=== PATIENT | female | born 1945 | race Caucasian/White ===

== ENCOUNTER 2016-09-14 09:21 | Inpatient (IN) | payer OTHER ==
[~2016-09-14] VITALS: Ht 157.5 cm; Wt 82.1 kg
[~2016-09-14 09:21] MED LIST: ACTOS30 MG PO; ADVAIR 250/501 DISK IH; ALFALFA650 MG PO; AMBIEN10 MG PO; ASPIRIN81 M1 PO; B-12 DOTS500 MCG PO; BONIVA150 MG PO; CALCIUM600 MG PO; CELEXA20 MG PO; COLACE100 MG PO; EFFIENT10 MG PO; FISH OIL 1,0001 EACH PO; HYDROCODON-ACE1 EAC7 PO; LANTUS100 UNIT/1 SQ; LASIX10 MG PO; LEVAQUIN750 MG PO; LIPITOR20 MG PO; MULTIVITAMIN1 EAC1 PO; NEXIUM40 MG PO; NORVASC10 MG PO; NOVOLIN N100 UNIT/1 SQ; PLAVIX75 MG PO
[2016-09-24] MEDS ORDERED: VALIUM5 MG PO (19:03)
[2016-09-24] MEDS ORDERED: NORCO 5/3251 TABLET PO (19:03)
[2016-12-09] MEDS ORDERED: LIPITOR40 MG PO (11:24)
[2016-12-09] MEDS ORDERED: PLAVIX75 MG PO (11:26)
[2016-12-09] MEDS ORDERED: ZOLOFT50 MG PO (11:27)
[2016-12-09] MEDS ORDERED: AVAPRO75 MG PO (11:28)
[2016-12-09] MEDS ORDERED: VITAMIN D31000 UNI2 PO (11:29)
[2016-12-09] MEDS ORDERED: VITAMIN B-6100 MG PO (11:30)
[2016-12-09] MEDS ORDERED: GLUCOPHAGE1000 MG PO (11:31)
[2016-12-09] MEDS ORDERED: MSM1000 MG PO (11:31)
[2016-12-09] MEDS ORDERED: FISH OIL 1,001000 M2 PO (11:32)
[2016-12-09] MEDS ORDERED: COZAAR50 MG PO (11:33)
[2016-12-09] MEDS ORDERED: LINZESS145 MCG PO (11:33)
[2016-12-09] MEDS ORDERED: IRON160 M1 PO (11:37)
[2016-12-14 10:16] LABS: POINT-OF-CARE METER ID UU14174212
[2016-12-14 10:34] VITALS: BP 123/59
[2016-12-14 11:23] LABS: POINT-OF-CARE METER ID UU14174212
[2016-12-14 13:55] LABS: POINT-OF-CARE METER ID UU14174212
[2016-12-14 15:14] VITALS: BP 145/65
== END 2016-12-14 20:14 | disposition home or self-care (01) | DRG 554 ==
LOC: 2SOUTH
PROVIDERS: Orthopaedic Surgery
DX: M16.11 Unilateral primary osteoarthritis, right hip (principal); I44.1 Atrioventricular block, second degree; Z53.09 Procedure and treatment not carried out because of other contraindication; J44.9 Chronic obstructive pulmonary disease, unspecified; I10 Essential (primary) hypertension; I25.10 Atherosclerotic heart disease of native coronary artery without angina pectoris; E78.2 Mixed hyperlipidemia; Z95.1 Presence of aortocoronary bypass graft; F17.210 Nicotine dependence, cigarettes, uncomplicated; G47.33 Obstructive sleep apnea (adult) (pediatric); E66.9 Obesity, unspecified; I08.3 Combined rheumatic disorders of mitral, aortic and tricuspid valves; Z68.32 Body mass index [BMI] 32.0-32.9, adult; E11.3299 Type 2 diabetes mellitus with mild nonproliferative diabetic retinopathy without macular edema, unspecified eye
CPT/HCPCS: 36415; 82948; 86850; 86900; 86901; 93005; J0330; J0690; J2250; J3010; J7050

== ENCOUNTER 2017-03-13 22:41 | Emergency (ER) | payer OTHER ==
[~2017-03-13] VITALS: Ht 157.5 cm; Wt 85.0 kg
[~2017-03-13 22:41] MED LIST changes: +AVAPRO75 MG PO; +COZAAR50 MG PO; +FISH OIL 1,001000 M2 PO; +GLUCOPHAGE1000 MG PO; +IRON160 M1 PO; +LINZESS145 MCG PO; +LIPITOR40 MG PO; +MSM1000 MG PO; +NORCO 5/3251 TABLET PO; +VALIUM5 MG PO; +VITAMIN B-6100 MG PO; +VITAMIN D31000 UNI2 PO; +ZOLOFT50 MG PO
[2017-03-13 23:38] LABS: HEMATOCRIT 37.8 % (36.0-46.0); MCH 30.2 PG (29.0-34.0); MCHC 33.9 G/DL (30.0-36.0); MCV 89.2 FL (83-99); MEAN PLAT.VOLUME 10.2 uM^3 (9.5-12.4); PLATELET COUNT 213 K/uL (156-360); RBC DIS.WIDTH-CV 13.5 % (11.8-14.6); RBC DIS.WIDTH-SD 44.1 % (39-53); RED BLOOD COUNT 4.24 M/uL (3.80-5.20); WHITE BLOOD COUNT 8.8 K/uL (4.1-10.2)
[2017-03-13 23:45] LABS: CHLORIDE 101 mEq/L (99-109); POTASSIUM 4.2 mEq/L (3.7-5.4); SODIUM 134 mEq/L (136-147)
[2017-03-13 23:48] LABS: GLUCOSE 250 mg/dL (70-99)
[2017-03-13 23:49] LABS: ANION GAP 11 MEQ/L (2-14)
[2017-03-13 23:50] LABS: TOTAL BILIRUBIN 0.3 mg/dL (0.0-1.0)
[2017-03-13 23:51] LABS: ALKALINE PHOSPHATASE 133 IU/L (3-129); GFR ESTIMATE (CALCULATED) 40 mL/min/
[2017-03-13 23:52] LABS: UREA NITROGEN (BUN) 34 mg/dL (9-23)
[2017-03-14 00:10] LABS: ADD MIUA? YES; BILIRUBIN NEGATIVE; BLOOD NEGATIVE; COLOR YELLOW ((YELLOW)); GLUCOSE (STRIP) NEGATIVE; KETONES NEGATIVE; LEUKOCYTES NEGATIVE; NITRITE NEGATIVE; PROTEIN (STRIP) 100; SPECIFIC GRAVITY 1.015 (1.000-1.030)
[2017-03-14 00:33] LABS: BACTERIA NONE SEEN /HPF; EPITHELIAL CELLS RARE /HPF; MUCUS TRACE /LPF; RED BLOOD CELLS 0-5 /HPF (0-5); UCUL ADDED? NO; WHITE BLOOD CELLS 0-5 /HPF (0-5)
[2017-03-14] MEDS ORDERED: KEFLEX500 MG PO (00:41)
[2017-03-14 00:59] VITALS: BP 135/53
== END 2017-03-14 00:59 | disposition home or self-care (01) ==
LOC: EME 22:41
PROC: 0T9B70Z Drainage of Bladder with Drainage Device, Via Natural or Artificial Opening (ICD-10-PCS; principal; 2017-03-13)
DX: R33.9 Retention of urine, unspecified (principal); N39.0 Urinary tract infection, site not specified; I11.0 Hypertensive heart disease with heart failure; I50.9 Heart failure, unspecified; E11.9 Type 2 diabetes mellitus without complications; J44.9 Chronic obstructive pulmonary disease, unspecified; J45.909 Unspecified asthma, uncomplicated; E78.5 Hyperlipidemia, unspecified; I25.10 Atherosclerotic heart disease of native coronary artery without angina pectoris; M81.0 Age-related osteoporosis without current pathological fracture; Z95.1 Presence of aortocoronary bypass graft; F17.200 Nicotine dependence, unspecified, uncomplicated
CPT/HCPCS: 80053; 81003; 83605; 85027; 99281; 99284

== ENCOUNTER 2018-01-10 22:09 | Inpatient (IN) | payer OTHER ==
[~2018-01-10] VITALS: Ht 157.5 cm; Wt 93.0 kg
[~2018-01-10 22:09] MED LIST changes: +CALCIUM500 M4 PO; -CALCIUM600 MG PO; +KEFLEX500 MG PO; +LANTUS 3 M100 UNITS1 SC; -LASIX10 MG PO; +LASIX20 MG PO; +NOVOLOG PE100 UNITS/ SC; +SYNTHROID50 MCG PO; +TOPICAINE 5113 GM TP; +TUMS500 MG PO
[2018-01-11 06:22] VITALS: BP 182/79
[2018-01-11 13:45] VITALS: BP 158/71
[2018-01-11 15:43] VITALS: BP 184/79
[2018-01-11 17:09] VITALS: BP 157/66
[2018-01-11 19:38] VITALS: BP 177/72
[2018-01-12 00:15] VITALS: BP 169/62
[2018-01-12 04:16] VITALS: BP 182/68
[2018-01-12 05:56] LABS: HEMATOCRIT 28.9 % (36.0-46.0)
[2018-01-12 06:15] LABS: CHLORIDE 102 MEQ/L (99-109); CREATININE 0.8 MG/DL (0.6-1.3); GFR ESTIMATE (CALCULATED) > 59 mL/min/; GLUCOSE 170 mg/dL (70-99); POTASSIUM 4.4 MEQ/L (3.7-5.4); SODIUM 133 MEQ/L (136-147); UREA NITROGEN (BUN) 16 mg/dL (9-23)
[2018-01-12 06:44] LABS: HEMOGLOBIN 9.8 G/DL (11.9-15.5); MCV 92.3 FL (83-99)
[2018-01-12 08:00] VITALS: BP 159/71
[2018-01-12 12:20] VITALS: BP 151/68
[2018-01-12 16:30] VITALS: BP 169/68
[2018-01-12 20:00] VITALS: BP 169/67
[2018-01-13] VITALS (7 sets, daily range): BP systolic 140–189; BP diastolic 64–77
[2018-01-13 06:27] LABS: HEMOGLOBIN 8.8 G/DL (11.9-15.5); MCV 91.9 FL (83-99)
[2018-01-13 13:08] LABS: BASOPHIL (%) 0.2 % (0-1); EOSINOPHIL (%) 0.1 % (0-5); HEMATOCRIT 27.5 % (36.0-46.0); HEMOGLOBIN 9.5 G/DL (11.9-15.5); IMMATURE GRANULOCYTE (%) 0.6 % (0.0-0.7); LYMPHOCYTE (%) 18.1 % (15-42); LYMPHOCYTE COUNT 1.8 K/uL (1.0-2.8); MCH 31.4 PG (29.0-34.0); MCHC 34.5 G/DL (30.0-36.0); MCV 90.8 FL (83-99); MONOCYTE (%) 9.1 % (3-12); MONOCYTE COUNT 0.9 K/uL (0-0.8); NEUTROPHIL (%) 71.9 % (45-76); NEUTROPHIL COUNT 7.3 K/uL (1.8-6.4); RBC DIS.WIDTH-CV 12.7 % (11.8-14.6); RBC DIS.WIDTH-SD 42.3 % (39-53); WHITE BLOOD COUNT 10.2 K/uL (4.1-10.2)
[2018-01-13 13:12] LABS: PLATELET COUNT 178 K/uL (156-360); RED BLOOD COUNT 3.03 M/uL (3.80-5.20)
[2018-01-13 13:28] LABS: TROP-I INTERPRETATION NEGATIVE; TROPONIN-I 0.03 ng/mL (0.0-0.30)
[2018-01-13 13:34] LABS: ALBUMIN 3.2 G/DL (3.2-4.8); CHLORIDE 101 MEQ/L (99-109); POTASSIUM 3.6 MEQ/L (3.7-5.4); SODIUM 133 MEQ/L (136-147); TOTAL BILIRUBIN 0.6 MG/DL (0.0-1.0)
[2018-01-13 13:40] LABS: ALKALINE PHOSPHATASE 78 IU/L (3-129); ALT (GPT) 10 IU/L (3-49); AST (GOT) 27 IU/L (2-34); CREATININE 0.7 MG/DL (0.6-1.3); GFR ESTIMATE (CALCULATED) > 59 mL/min/; LIPASE 16 U/L (1.0-51.0); TOTAL PROTEIN 5.9 G/DL (6.4-8.3); UREA NITROGEN (BUN) 16 mg/dL (9-23)
[2018-01-13 13:41] LABS: GLUCOSE 258 mg/dL (70-99)
[2018-01-13 14:53] LABS: MAGNESIUM 1.4 mg/dl (1.3-2.7)
[2018-01-13 16:28] LABS: APPEARANCE CLEAR ((CLEAR)); BILIRUBIN NEGATIVE; BLOOD SMALL; COLOR YELLOW ((YELLOW)); GLUCOSE (STRIP) NEGATIVE; KETONES NEGATIVE; LEUKOCYTES NEGATIVE; NITRITE NEGATIVE; PROTEIN (STRIP) 100; SPECIFIC GRAVITY 1.005 (1.000-1.030); UROBILINOGEN 0.2 MG/DL (0.2-1.0)
[2018-01-13 16:33] LABS: BACTERIA NONE SEEN /HPF; EPITHELIAL CELLS RARE /HPF; MUCUS TRACE /LPF; RED BLOOD CELLS 0-5 /HPF (0-5); UCUL ADDED? NO; WHITE BLOOD CELLS 0-5 /HPF (0-5)
[2018-01-13 20:42] LABS: TROP-I INTERPRETATION NEGATIVE; TROPONIN-I 0.03 ng/mL (0.0-0.30)
[2018-01-14 01:19] LABS: TROP-I INTERPRETATION NEGATIVE; TROPONIN-I 0.03 ng/mL (0.0-0.30)
[2018-01-14 04:36] VITALS: BP 157/70
[2018-01-14 08:26] VITALS: BP 163/70
[2018-01-14] MEDS ORDERED: HYDROCODON-ACE1 EAC7 PO (08:39)
[2018-01-14] MEDS ORDERED: LOVENOX40 MG/0.4 SC (08:49)
[2018-01-14 11:15] LABS: BASOPHIL (%) 0.3 % (0-1); EOSINOPHIL (%) 0.7 % (0-5); EOSINOPHIL COUNT 0.1 K/uL (0-0.3); HEMATOCRIT 25.6 % (36.0-46.0); HEMOGLOBIN 8.7 G/DL (11.9-15.5); IMMATURE GRANULOCYTE (%) 0.3 % (0.0-0.7); MCH 31.9 PG (29.0-34.0); MCV 93.8 FL (83-99); MONOCYTE (%) 8.4 % (3-12); MONOCYTE COUNT 0.8 K/uL (0-0.8); NEUTROPHIL (%) 68.3 % (45-76); NEUTROPHIL COUNT 6.1 K/uL (1.8-6.4); PLATELET COUNT 191 K/uL (156-360); RBC DIS.WIDTH-SD 44.2 % (39-53); RED BLOOD COUNT 2.73 M/uL (3.80-5.20)
[2018-01-14 11:42] VITALS: BP 163/66
== END 2018-01-14 16:30 | DRG 470 ==
LOC: ENRESERV 22:09 → 3WEST 01-11 05:31 → 2SOUTH 01-11 05:31 → ENRESERV 01-11 10:56 → 3WEST 01-11 12:22 → 2SOUTH 01-11 13:16 → 3WEST 01-13 07:24 → ENRESERV 01-13 07:26 → CANRESERV 01-13 07:26 → ENRESERV 01-13 07:27 → 3EAST 01-13 13:41
PROVIDERS: Hospitalist; Orthopaedic Surgery
PROC: 0SR904A Replacement of Right Hip Joint with Ceramic on Polyethylene Synthetic Substitute, Uncemented, Open Approach (ICD-10-PCS; principal; 2018-01-11)
DX: M16.11 Unilateral primary osteoarthritis, right hip (principal); E87.2 Acidosis; E11.9 Type 2 diabetes mellitus without complications; E78.5 Hyperlipidemia, unspecified; G47.33 Obstructive sleep apnea (adult) (pediatric); I10 Essential (primary) hypertension; I25.10 Atherosclerotic heart disease of native coronary artery without angina pectoris; J44.9 Chronic obstructive pulmonary disease, unspecified; T38.3X5A Adverse effect of insulin and oral hypoglycemic [antidiabetic] drugs, initial encounter; E66.9 Obesity, unspecified; M25.851 Other specified joint disorders, right hip; F41.9 Anxiety disorder, unspecified; R07.89 Other chest pain; Z95.1 Presence of aortocoronary bypass graft; Z95.0 Presence of cardiac pacemaker; Z79.4 Long term (current) use of insulin; Z79.02 Long term (current) use of antithrombotics/antiplatelets; Z60.2 Problems related to living alone; Z68.37 Body mass index [BMI] 37.0-37.9, adult; Z79.51 Long term (current) use of inhaled steroids; Y92.230 Patient room in hospital as the place of occurrence of the external cause; Z79.82 Long term (current) use of aspirin
CPT/HCPCS: 71045; 71275; 80048; 80053; 81003; 82948; 83605; 83690; 83735; 84145 90; 84484; 85014; 85018; 85025; 85027; 87040; 93005; 94640; 94640 76; 94799; 97530 GP; C1713; J0131; J0360; J0690; J1100; J1170; J1650; J1815; J2175; J2250; J2270; J2405; J2543; J2710; J2765; J3010; J7030; J7050; J7120